=== PATIENT | female | born 1960 | race Two or more races ===

== ENCOUNTER 2020-11-27 10:46 | Inpatient (IN) | payer OTHER ==
[~2020-11-27] VITALS: Ht 61 cm; Wt 5.0 kg
--- NOTE | 2020-11-27 11:04 | NUR ---
SE RECIBE PACIENTE EN AMBULANCIA REFIERE DIFICULTAD RESPIRATORIA SE GOMEZ S/V Y SE UUBIAC EN AREA DE CHEST PAIN POR ORDEN DE DRA PINA
--- NOTE | 2020-11-27 12:09 | NUR ---
SE RECIBE PACIENTE ALERTA Y ORIENTADA EN LAS DENISE ESFERAS. PACIENTE PRESENTA DIFICULTAD RESPIRATORIA. SE CONECTA A PACIENTE A MONITOR CARDIACO Y A OXIMETRIA. SE COLOCA VENTURY MASK A 2 LT. SE ORIENTA A PACIENTE SOBRE TRATAMIENTO. SE GOMEZ S/V Y SE COLECTAN MUESTRAS DE LABORATORIO. SE ADMINISTRAN MEDICAMENTOS ORDENADOS. SE MANTIENE A PACIENTE BAJO OBSERVACION. SE NOTIFICA A TERAPIA RESPIRATORIA PARA TRATAMIENTO.
--- NOTE | 2020-11-27 13:11 | NUR ---
SE GOMEZ MUESTRAS DE LABORATORIO QUE HABIAN SIDO CANCELADAS. SE ESPERA POR RESULTADOS DE LAS MISMAS.
--- NOTE | 2020-11-27 15:30 | NUR ---
SE RECIBE PTE FEMRENINA ALERTA Y ORIENTADA X3,CONECTADA A MONITOR CARDIACO LILA Y OXIMETRIA CONTINUA,SE REALIZAN S/V,SE ADMINISTRA MEDICAMENTO EL CUAL TOLERA,SE ASISTE A ORINAR YA QUE PTE REHUSA SE COLOQUE SHELTON,YA QUE ESTA AL MOVIMIENTO SE OBSERVA CON DIFICULTAD RESPIRATORIA,SE NOTIFICA A ROHENA SOBRE TRATAMIENTO DE TERAPIA RESPIRATORIA,PTE TRANQUILA AL MOMENTO Y COOPERADORA,SE MANTIENE EN OBSERVACION POR CAMBIOS.
--- NOTE | 2020-11-27 16:47 | NUR ---
SE ADMINISTRAN TERAPIAS RESPIRATORIAS A PTE LA CULA TOLERA Y PTE REFIERE SE QUIERE IR A GARZA HOGAR ES ORIENTADA A ESPERAR EVALUACION DE MEDICO INTERNISTA PARA QUE TOME DESICION,ESTA REFIERE TIENE UN VUELO MANANA EN LA MANANA,SE LE INDICA LA IMPORANCIA DEL TRATAMIENTO YA QUE ESTA SE OBSERVA CON DIFICULTAD RESPIRATORIA Y TOS LILA,SE RELIZAN S/V N[place]AM[place] Y SE INDICA A GLORIA.BONILLATA.
== END 2020-11-28 10:31 | disposition still patient (30) | DRG 291 ==
LOC: ER 10:46 → SEC-K 22:35 → MEDJ 11-28 00:04
PROVIDERS: ADMIT Internal Medicine; ATTEND Internal Medicine
PROC: 3E0F7SF Introduction of Other Gas into Respiratory Tract, Via Natural or Artificial Opening (ICD-10-PCS; principal; 2020-11-27)
PROC: 4A033R1 Measurement of Arterial Saturation, Peripheral, Percutaneous Approach (ICD-10-PCS; 2020-11-27)
DX: I50.9 Heart failure, unspecified (principal); J16.8 Pneumonia due to other specified infectious organisms; J44.9 Chronic obstructive pulmonary disease, unspecified; R06.02 Shortness of breath; R09.02 Hypoxemia; I10 Essential (primary) hypertension; Z87.891 Personal history of nicotine dependence; Z20.822 Contact with and (suspected) exposure to COVID-19